=== PATIENT | male | born 1980 | race Caucasian/White ===

== ENCOUNTER 2022-07-17 10:47 | Day surgery (SDC) | payer BC, OTHER ==
[2022-07-13 10:47] VITALS: BMI 33.2
[2022-07-17] MEDS ORDERED: ALBUTEROL SO4 HFA INHALER IH ONE (12:05)
[2022-07-17 15:10] VITALS: TEMP 98
[2022-07-17 15:12] VITALS: BP 140/86; PULSE 92
[2022-07-17 15:17] VITALS: RESP 15
== END 2022-07-17 13:25 | disposition home or self-care (01) ==
LOC: FASU-ENDO 10:47
PROVIDERS: ATTEND Internal Medicine Gastroenterology
PROC: 0DB68ZX Excision of Stomach, Via Natural or Artificial Opening Endoscopic, Diagnostic (ICD-10-PCS; 2022-07-17)
PROC: 0DB48ZX Excision of Esophagogastric Junction, Via Natural or Artificial Opening Endoscopic, Diagnostic (ICD-10-PCS; 2022-07-17)
PROC: 0DB98ZX Excision of Duodenum, Via Natural or Artificial Opening Endoscopic, Diagnostic (ICD-10-PCS; principal; 2022-07-17 11:50)
DX: K29.50 Unspecified chronic gastritis without bleeding (principal); K31.9 Disease of stomach and duodenum, unspecified; K20.90 Esophagitis, unspecified without bleeding; R10.13 Epigastric pain
CPT/HCPCS: 88305-TC; 88342-TC

== ENCOUNTER 2022-09-11 09:06 | Day surgery (SDC) | payer BC, OTHER ==
[2022-09-09 16:42] VITALS: BMI 33.9
[2022-09-11] MEDS ORDERED: LIDOCAINE HCL/PF 2% SDV 5ML VIAL ONE (09:58)
[2022-09-11] MEDS ORDERED: PROPOFOL 60 ML ONE (09:58)
[2022-09-11 10:57] VITALS: TEMP 98.7
[2022-09-11 11:19] VITALS: BP 141/81; PULSE 88; RESP 16
== END 2022-09-11 11:35 | disposition home or self-care (01) ==
LOC: FASU-ENDO 09:06
PROVIDERS: ATTEND Internal Medicine Gastroenterology
PROC: 0DJD8ZZ Inspection of Lower Intestinal Tract, Via Natural or Artificial Opening Endoscopic (ICD-10-PCS; principal; 2022-09-11 10:27)
DX: Z12.11 Encounter for screening for malignant neoplasm of colon (principal); K64.1 Second degree hemorrhoids

== ENCOUNTER 2024-08-15 12:39 | Day surgery (SDC) | payer BC, OTHER ==
[2024-08-10 11:40] VITALS: BMI 34.2
[2024-08-15 13:15] VITALS: RESP 18
[2024-08-15 15:21] VITALS: BP 140/70; PULSE 89; TEMP 98
== END 2024-08-15 15:00 | disposition home or self-care (01) ==
LOC: FASU-ENDO 12:39
PROVIDERS: ATTEND Internal Medicine Gastroenterology
PROC: 0DB78ZX Excision of Stomach, Pylorus, Via Natural or Artificial Opening Endoscopic, Diagnostic (ICD-10-PCS; 2024-08-15)
PROC: 0DB68ZX Excision of Stomach, Via Natural or Artificial Opening Endoscopic, Diagnostic (ICD-10-PCS; 2024-08-15)
PROC: 0DB48ZX Excision of Esophagogastric Junction, Via Natural or Artificial Opening Endoscopic, Diagnostic (ICD-10-PCS; 2024-08-15)
PROC: 0DB98ZX Excision of Duodenum, Via Natural or Artificial Opening Endoscopic, Diagnostic (ICD-10-PCS; principal; 2024-08-15 14:09)
DX: K29.50 Unspecified chronic gastritis without bleeding (principal); K20.90 Esophagitis, unspecified without bleeding; R10.13 Epigastric pain
CPT/HCPCS: 88305-TC; 88342-TC